=== PATIENT | female | born 1925 | race Caucasian/White ===

== ENCOUNTER → 2016-11-26 | Outpatient (CLI) | payer OTHER ==
[~2016-11-26] MED LIST: ACETAMINOPHEN-H1 TA2 PO; ALBUTEROL0.63 MG/3 INH; ALPRAZOLAM0.25 M2 PO; APRESOLINE25 MG PO; ASPIRIN325 MG PO; BISACODYL LAXATI5 MG PO; BONIVA150 MG PO; CALAN SR240 MG PO; CALCIUM 600 W/V1 TAB PO; CIPRO250 MG PO; CIPRO500 MG PO; CLARITIN10 MG PO; DIPHENHYDRAMINE25 M2 PO; DUONEB 3 MG/3 ML3 M1 INH; DUONEB 3 MG/3 ML3 M1 NEB; FE-TABS325 MG PO; FERROUS SULFAT325 M1 PO; FEXOFENADINE180 MG PO; FOSAMAX70 M1 PO; GLUCOTROL XL10 MG PO; HEARTBURN RELI200 MG PO; HUMALOG100 U/ML SC; IRON325 M2 PO; ISOPTIN SR240 MG PO; JANUMET 500 MG-1 TAB PO; JANUVIA50 MG PO; LOPID600 MG PO; LOVENOX30 MG/0.3 SC; Lovenox40 MG/0.4 SC; MAGNESIUM OXID400 MG PO; MAPAP325 MG PO; MAXZIDE 50 MG-71 TA1 PO; MAXZIDE 50 MG-71 TAB PO; MEGACE400 MG/10 PO; MIACALCIN SPRAY1 EA NAS; MULTIPLE VITAMI1 CAP PO; OMEPRAZOLE D/R20 MG PO; OMEPRAZOLE40 MG PO; ONDANSETRON H2 MG/ML IV; OYSTER SHELL CA1 TA5 PO; Oscal,Oyster S500 MG PO; PREVACID SOLUTA30 MG PO; PRILOSEC20 M1 PO; PROTONIX40 MG PO; SENSIPAR30 MG PO; SERTRALINE HYDR25 MG PO; TYLENOL325 M2 PO; VERAPAMIL ER240 MG PO; VITAMIN D50000 I3 PO; VITAMIN D50000 UNIT PO; VITAMIN E400 I1 PO; VITAMIN E400 UNI2 PO; XANAX0.25 MG PO; ZANTAC 150150 MG PO; ZANTAC150 MG PO; ZOLOFT25 MG PO
== END | disposition home or self-care (01) ==
LOC: ORTHO 03:02
DX: S72.002D Fracture of unspecified part of neck of left femur, subsequent encounter for closed fracture with routine healing (principal); X58.XXXD Exposure to other specified factors, subsequent encounter

== ENCOUNTER → 2017-02-24 | Outpatient (CLI) | payer OTHER | END | disposition home or self-care (01) | LOC: ORTHO 03:10 | DX: S72.002D Fracture of unspecified part of neck of left femur, subsequent encounter for closed fracture with routine healing (principal); X58.XXXD Exposure to other specified factors, subsequent encounter ==

== ENCOUNTER → 2017-03-31 | Outpatient (CLI) | payer OTHER | END | disposition home or self-care (01) | LOC: RAD 14:16 | DX: M15.0 Primary generalized (osteo)arthritis (principal); M25.561 Pain in right knee; M25.562 Pain in left knee; M25.551 Pain in right hip; M25.552 Pain in left hip; W19.XXXA Unspecified fall, initial encounter; Y93.89 Activity, other specified; Y92.89 Other specified places as the place of occurrence of the external cause; Y99.8 Other external cause status ==

== ENCOUNTER 2017-06-01 16:00 | Emergency (ER) | payer OTHER ==
[~2017-06-01] VITALS: Ht 162.5 cm; Wt 49.9 kg
[2017-06-01 16:13] VITALS: BP 162/59
[2017-06-01] MEDS ORDERED: ULTRAM50 MG PO (16:24)
[2017-06-01] MEDS ORDERED: BACTROBAN CREAM15 GM PO (16:24)
[2017-06-01] MEDS ORDERED: ZOVIRAX400 MG PO (16:24)
== END 2017-06-01 16:34 | disposition home or self-care (01) ==
LOC: ED 16:00
DX: B02.9 Zoster without complications (principal); Z88.1 Allergy status to other antibiotic agents; Z79.899 Other long term (current) drug therapy

== ENCOUNTER → 2017-08-03 | Outpatient (CLI) | payer OTHER ==
[~2017-08-03] MED LIST changes: +BACTROBAN CREAM15 GM PO; +ULTRAM50 MG PO; +ZOVIRAX400 MG PO
[2017-08-03 13:10] LABS: HEMATOCRIT 36.5 % (37.0-47.0); HEMOGLOBIN 12.4 g/dl (12.0-16.0); MEAN CELL VOLUME 94.1 fl (81.0-99.0); MEAN PLATELET VOLUME 10.2 fl (9.6-12.3); RED BLOOD COUNT 3.88 10*6/uL (4.10-5.10); RED CELL DISTRI WIDTH 11.9 % (0-14.5); WHITE BLOOD COUNT 7.6 10*3/uL (4.8-10.8)
[2017-08-03 13:31] LABS: CREATININE 1.12 mg/dL (0.55-1.02); POTASSIUM 4.4 mmol/L (3.5-5.1)
[2017-08-03 13:32] LABS: TOTAL PROTEIN 7.6 gm/dL (6.4-8.2)
[2017-08-03 14:09] LABS: VITAMIN D, 25-HYDROXY 38.6 ng/mL (30-100)
== END | disposition home or self-care (01) ==
LOC: LAB 12:43
PROVIDERS: Family Medicine
DX: E11.9 Type 2 diabetes mellitus without complications (principal); E78.00 Pure hypercholesterolemia, unspecified; I10 Essential (primary) hypertension; M19.90 Unspecified osteoarthritis, unspecified site; G47.00 Insomnia, unspecified